=== PATIENT | male | born 1980 | race American Indian/Alaskan Native ===

== ENCOUNTER 2017-07-20 15:42 | Emergency (ER) | payer BC ==
[2017-07-20] MEDS ORDERED: TYLENOL PO ONE (21:08)
[2017-07-20 21:11] VITALS: BP 121/84
--- NOTE | 2017-07-20 21:42 | Cat Scan Report ---
FINAL REPORT PROCEDURE: CT HEAD/BRAIN WO CON TECHNIQUE: Computerized tomography of the head was performed without contrast material. HISTORY: headache COMPARISON: No prior studies are available for comparison. FINDINGS: Skull and scalp: Normal. Paranasal sinuses: There is mucosal thickening involving left ethmoid and visualized left maxillary sinuses.. Ventricles and subarachnoid spaces: Normal. Cerebrum: No evidence of hemorrhage, acute infarction or mass . Cerebellum and brainstem: No evidence of hemorrhage, acute infarction or mass. Vasculature: Normal. Comments: None. IMPRESSION: No acute intracranial abnormality. Chronic sinusitis.
--- NOTE | 2017-07-20 22:17 | Emergency Department Report ---
ED ENT HPI - General Chief complaint: Headache Stated complaint: HEADACHES Time Seen by Provider: 07/20/17 22:10 Source: patient Mode of arrival: Ambulatory Limitations: No Limitations - History of Present Illness Initial comments: 36-year-old male past medical history none presents with complaint of headache for 2 days. Patient states that he has had dull left-sided earache which is causing him to have a headache. Denies any purulent drainage from ear. Patient is awake alert and oriented 3 denies fevers chills nausea vomiting sore throat for a phonophobia or neck pain. Primarily complaining of pressure in his left ear. MD complaint: ear pain Onset/Timin -: days(s) Location: L ear Severity: moderate Severity scale (0 -10): 5 Quality: aching Consistency: intermittent - Related Data Previous Rx's Medication Instructions Recorded Last Taken Type Amoxicillin [Trimox CAP] 500 mg PO Q8H #21 capsule 07/20/17 Unknown Rx Carbamide Peroxide 6.5% [Ear Wax 5 - 10 drops OT BID #1 bottle 07/20/17 Unknown Rx Drops] Ibuprofen [Motrin] 800 mg PO Q8HR PRN #20 tablet 07/20/17 Unknown Rx Allergies Allergy/AdvReac Type Severity Reaction Status Date / Time No Known Allergies Allergy Unverified 07/20/17 16:22 ED Dental HPI - General Chief complaint: Headache Stated complaint: HEADACHES Time Seen by Provider: 07/20/17 22:10 Source: patient Mode of arrival: Ambulatory Limitations: No Limitations - Related Data Previous Rx's Medication Instructions Recorded Last Taken Type Amoxicillin [Trimox CAP] 500 mg PO Q8H #21 capsule 07/20/17 Unknown Rx Carbamide Peroxide 6.5% [Ear Wax 5 - 10 drops OT BID #1 bottle 07/20/17 Unknown Rx Drops] Ibuprofen [Motrin] 800 mg PO Q8HR PRN #20 tablet 07/20/17 Unknown Rx Allergies Allergy/AdvReac Type Severity Reaction Status Date / Time No Known Allergies Allergy Unverified 07/20/17 16:22 ED Review of Systems ROS: Stated complaint: HEADACHES Other details as noted in HPI Constitutional: denies: chills, fever Eyes: denies: eye pain, eye discharge, vision change ENT: ear pain. denies: throat pain Respiratory: denies: cough, shortness of breath, wheezing Cardiovascular: denies: chest pain, palpitations Endocrine: no symptoms reported Gastrointestinal: denies: abdominal pain, nausea, diarrhea Genitourinary: denies: urgency, dysuria Musculoskeletal: denies: back pain, joint swelling, arthralgia Skin: denies: rash, lesions Neurological: headache. denies: weakness, paresthesias Psychiatric: denies: anxiety, depression Hematological/Lymphatic: denies: easy bleeding, easy bruising ED Past Medical Hx - Past Medical History Previous Medical History?: No - Surgical History Past Surgical History?: No - Social History Smoking Status: Never Smoker Substance Use Type: Alcohol - Medications Home Medications: Home Medications Medication Instructions Recorded Confirmed Last Taken Type Amoxicillin [Trimox CAP] 500 mg PO Q8H #21 capsule 07/20/17 Unknown Rx Carbamide Peroxide 6.5% [Ear Wax 5 - 10 drops OT BID #1 bottle 07/20/17 Unknown Rx Drops] Ibuprofen [Motrin] 800 mg PO Q8HR PRN #20 tablet 07/20/17 Unknown Rx ED Physical Exam - General Limitations: No Limitations General appearance: alert, in no apparent distress - Head Head exam: Present: atraumatic, normocephalic - Eye Eye exam: Present: normal appearance, PERRL, EOMI - ENT ENT exam: Present: mucous membranes moist - Expanded ENT Exam Expanded TM/Canal exam: Erythema: Left TM (there is no clinical mastoiditis on exam. Left ear canal erythema is mild), Bulging: Left TM, Cerumen Impaction: Left TM ( partial cerumen impaction left ear) - Neck Neck exam: Present: normal inspection - Respiratory Respiratory exam: Present: normal lung sounds bilaterally. Absent: respiratory distress - Cardiovascular Cardiovascular Exam: Present: regular rate, normal rhythm. Absent: systolic murmur, diastolic murmur, rubs, gallop - GI/Abdominal GI/Abdominal exam: Present: soft, normal bowel sounds - Rectal Rectal exam: Present: deferred - Extremities Exam Extremities exam: Present: normal inspection - Back Exam Back exam: Present: normal inspection - Neurological Exam Neurological exam: Present: alert, oriented X3 - Psychiatric Psychiatric exam: Present: normal affect, normal mood - Skin Skin exam: Present: warm, dry, intact, normal color. Absent: rash ED Course Vital Signs 07/20/17 07/20/17 16:22 21:10 Temperature 98.7 F 98.1 F Pulse Rate 66 50 L Respiratory 20 16 Rate Blood Pressure 125/72 Blood Pressure 121/84 [Right] O2 Sat by Pulse 99 100 Oximetry ED Medical Decision Making - Medical Decision Making A/P: Otitis media left ear, cerumen impaction 1-Debrox eardrops 2-amoxicillin course 3 times a day 7 days 3-Motrin 800 when necessary 4- follow-up with PCP Critical care attestation.: If time is entered above; I have spent that time in minutes in the direct care of this critically ill patient, excluding procedure time. ED Disposition Clinical Impression: Impacted cerumen of left ear Otitis media Qualifiers: Otitis media type: suppurative Chronicity: acute Laterality: left Recurrence: not specified as recurrent Spontaneous tympanic membrane rupture: without spontaneous rupture Qualified Code(s): H66.002 - Acute suppurative otitis media without spontaneous rupture of ear drum, left ear Disposition: - TO HOME OR SELFCARE Is pt being admited?: No Does the pt Need Aspirin: No Condition: Stable Instructions: Cerumen Impaction (ED), Otitis Media (ED) Prescriptions: Amoxicillin [Trimox CAP] 500 mg PO Q8H #21 capsule Carbamide Peroxide 6.5% [Ear Wax Drops] 5 - 10 drops OT BID #1 bottle Ibuprofen [Motrin] 800 mg PO Q8HR PRN #20 tablet PRN Reason: Pain Referrals: [facility] [Provider Group] - 3-5 Days Forms: Work/School Release Form(ED) Time of Disposition: 22:15
== END 2017-07-20 22:17 | disposition home or self-care (01) ==
LOC: ED 15:42
DX: H61.22 Impacted cerumen, left ear (principal); H66.92 Otitis media, unspecified, left ear
CPT/HCPCS: 70450; 99283

== ENCOUNTER 2021-09-08 07:59 | Emergency (ER) | payer BC ==
--- NOTE | 2021-09-08 08:27 | Emergency Department Report ---
ED Back Pain/Injury HPI - General Stated Complaint: LT SIDE PAIN Time Seen by Provider: 09/08/21 08:24 Source: patient Mode of arrival: Ambulatory Limitations: No Limitations - History of Present Illness Initial Comments: L low back pain off and on for weeks; off to left side; no spine tenderness no fall/trauma no dysuria/ no fever/no n/v/d no dysuria or d/c worse in AM when he gets up and worse with movement sometimes has he same on Right side described as ache no fever/no chills no n/v/d no dysuria no abd pain no hematuria/ discharge does not wake him from sleep Ambulatory and in nad on arrival to ER MD Complaint: back pain -: Gradual Similar Symptoms Previously: Yes Place: home Radiation: flank Quality: aching Consistency: intermittent Improves With: none Worsens With: none Associated Symptoms: denies other symptoms - Related Data Previous Rx's Medication Instructions Recorded Last Taken Type Cyclobenzaprine [Flexeril] 10 mg PO TID PRN #10 tablet 09/08/21 Unknown Rx Ibuprofen [Motrin] 800 mg PO Q8HR PRN #30 tablet 09/08/21 Unknown Rx Allergies Allergy/AdvReac Type Severity Reaction Status Date / Time No Known Allergies Allergy Unverified 07/20/17 16:22 ED Review of Systems ROS: Stated complaint: LT SIDE PAIN Other details as noted in HPI Comment: All other systems reviewed and negative ED Past Medical Hx - Past Medical History Previous Medical History?: Yes - Surgical History Past Surgical History?: Yes - Family History Family history: no significant - Social History Smoking Status: Never Smoker Substance Use Type: Alcohol - Medications Home Medications: Home Medications Medication Instructions Recorded Confirmed Last Taken Type Cyclobenzaprine [Flexeril] 10 mg PO TID PRN #10 tablet 09/08/21 Unknown Rx Ibuprofen [Motrin] 800 mg PO Q8HR PRN #30 tablet 09/08/21 Unknown Rx ED Physical Exam - General Limitations: No Limitations General appearance: alert, in no apparent distress - Head Head exam: Present: atraumatic, normocephalic - Eye Eye exam: Present: normal appearance - ENT ENT exam: Present: mucous membranes moist - Neck Neck exam: Present: normal inspection - Respiratory Respiratory exam: Present: normal lung sounds bilaterally. Absent: respiratory distress - Cardiovascular Cardiovascular Exam: Present: regular rate, normal rhythm. Absent: systolic murmur, diastolic murmur, rubs, gallop - GI/Abdominal GI/Abdominal exam: Present: soft, normal bowel sounds - Rectal Rectal exam: Present: deferred - Extremities Exam Extremities exam: Present: normal inspection - Back Exam Back exam: Present: normal inspection - Neurological Exam Neurological exam: Present: alert, oriented X3 - Psychiatric Psychiatric exam: Present: normal affect, normal mood - Skin Skin exam: Present: warm, dry, intact, normal color. Absent: rash ED Course Vital Signs 09/08/21 08:24 Temperature 98.4 F Pulse Rate 74 Respiratory 14 Rate Blood Pressure 142/87 O2 Sat by Pulse 98 Oximetry ED Medical Decision Making - Medical Decision Making Vital Signs 09/08/21 08:24 Temperature 98.4 F Pulse Rate 74 Respiratory 14 Rate Blood Pressure 142/87 O2 Sat by Pulse 98 Oximetry no dysuria or discharge; no hematuria; no difficulty with urination no fever or chills abd snt no cva tenderness no spine tenderness I am able to replicate pain with movement pt given decadron IM in ER educated on musculoskeletal pain management pt will dc home with pcp follow up in 48 hours if he does not feel better. on dc exam; pt ambulatory; no systemic symptoms; taking po pt verbalizes understanding of dc plan of care including diet, meds, activity and follow up - Differential Diagnosis musculoskeletal pain v flank pain from kidney origin Critical care attestation.: If time is entered above; I have spent that time in minutes in the direct care of this critically ill patient, excluding procedure time. ED Disposition Clinical Impression: Musculoskeletal pain Disposition: 01 HOME / SELF CARE / HOMELESS Is pt being admited?: No Does the pt Need Aspirin: No Condition: Stable Instructions: Musculoskeletal Pain Additional Instructions: meds as ordered follow up with pcp referral below warm baths Prescriptions: Cyclobenzaprine [Flexeril] 10 mg PO TID PRN #10 tablet PRN Reason: Muscle Spasm Ibuprofen [Motrin] 800 mg PO Q8HR PRN #30 tablet PRN Reason: Pain, Moderate (4-6) Referrals: SUSIE ZAMORA MD [Primary Care Provider] - 3-5 Days Forms: Work/School Release Form(ED) Time of Disposition: 08:26
[2021-09-08] MEDS ORDERED: dexAMETHasone 4 MG/ML VIAL IM ONE (08:29)
[2021-09-08 08:32] VITALS: BP 142/87
== END 2021-09-08 09:43 | disposition home or self-care (01) ==
LOC: ED 07:59
DX: M79.18 Myalgia, other site (principal); Z98.890 Other specified postprocedural states
CPT/HCPCS: 99282; J1100